=== PATIENT | male | born 1975 | race African-American/Black ===

== ENCOUNTER 2016-07-29 13:59 | Emergency (ER) | payer BC ==
[~2016-07-29] VITALS: Ht 180.3 cm; Wt 103.0 kg
[~2016-07-29 13:59] MED LIST: IBUP-1636
[2016-07-29 16:52] LABS: BASOPHILS % 0.7 % (0.0-2.0); EOSINOPHILS % 2.4 % (0.0-5.0); HEMATOCRIT. 43.4 % (42.0-52.0); HEMOGLOBIN. 14.7 g/dL (14.0-18.0); LYMPHOCYTES % 28.4 % (20.0-50.0); MEAN CORPUSCULAR HEMOGLOBIN 29.3 pg (28.0-32.0); MEAN CORPUSCULAR HGB CONC 33.9 g/dL (31.0-37.0); MEAN CORPUSCULAR VOLUME 86.3 fL (80.0-94.0); MEAN PLATELET VOLUME 7.5 fl (7.4-10.4); MONOCYTES % 11.8 % (2.0-8.0); NEUTROPHILS % 56.7 % (40.0-76.0); PLATELET 362 x1000/uL (130-400); RED BLOOD CELL COUNT 5.03 mill/uL (4.7-6.1); RED CELL DISTRIBUTION WIDTH 13.8 % (11.6-14.6); WHITE BLOOD COUNT 11.2 x1000/uL (4.5-11.0)
[2016-07-29 17:00] VITALS: BP 130/61
[2016-07-29 17:00] LABS: CHLORIDE 106 mEq/L (98-107); INDEX HEMOLYSI 1 (1-3); INDEX ICTERIC 1 (1-4); INDEX LIPEMIC 1 (1-3)
[2016-07-29 17:03] LABS: ALBUMIN 4.2 g/dL (3.4-5.0); ANION GAP 11; CALCIUM 8.8 mg/dL (8.5-10.1); CARBON DIOXIDE 29 mEq/L (21-32); LIPASE 162 IU/L (73-393); UREA NITROGEN BLOOD 13 mg/dL (7-21)
[2016-07-29 17:06] LABS: ALANINE AMINOTRANSFERASE 50 IU/L (13-61); eGFR > 60 mL/min (>60)
[2016-07-29 17:08] LABS: NT PRO B-TYPE NATRIURETIC PEP 16 pg/mL (5-125); TROPONIN I < 0.02 ng/mL (0.00-0.04)
[2016-07-29 17:10] LABS: D-DIMER < 0.19 mg/L FEU (<0.50); PROTHROMBIN TIME 10.5 sec
== END 2016-07-29 19:06 | disposition home or self-care (01) ==
LOC: ER 13:59
DX: R07.2 Precordial pain (principal); E78.00 Pure hypercholesterolemia, unspecified; F12.10 Cannabis abuse, uncomplicated; F17.200 Nicotine dependence, unspecified, uncomplicated; Z88.5 Allergy status to narcotic agent
CPT/HCPCS: 36415; 71010; 80053; 83690; 83880; 84484; 85025; 85379; 85610; 93005; 99285; 99406; Z7610